=== PATIENT | female | born 1980 | race Caucasian/White ===

== ENCOUNTER 2016-10-13 20:48 | Inpatient (IN) | payer OTHER ==
[~2016-10-13] VITALS: Ht 180.3 cm; Wt 61.9 kg
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
--- NOTE | ~2016-10-13 | ENPV ---
Vascular Lower Extremities DVT Study Procedure Demographics Patient Name TYRON SANDERS Date of Study 10/18/2016 Patient Number [id number] Gender Female Date of 1980 Age 36 Visit Number [id number] Height Weight Number Room Number G6213 BSA BMI Referring Quan Castle MD Physician Quan Bradford MD Physician Physician Ordering Quan Bradford Supervisor Cell Maintenance Physician Organization Development Consultant Geno Franco, RT,RVT,RDCS Conclusions Summary Normal venous duplex examination of the legs bilaterally with normal venous Doppler signals noted throughout. No evidence of thrombophlebitis is noted bilaterally in the deep and superficial veins of the legs. Small calf thrombi cannot be excluded. Procedure Type of Study: Veins:Lower Extremities DVT Study, Venous Duplex Lower Extremity Bilateral. Appropriate Use Criteria:9 Patient Status:Routine. Study Location:Inpatient Portable. Technical Quality:Good visualization. - Preliminary reported to:LE Thakkar. Velocities are measured in cm/s ; Diameters are measured in cm Right Lower Extremities DVT Study Measurements Right 2D and Doppler Measurements + + + + +------+------+ + !Location !Visualized!Compressibility!Thrombosis!Signal!Reflux!Reflux ! ! ! ! ! ! ! !(sec) ! + + + + +------+------+ + !GSV Thigh !Yes !Yes !None !Phasic!No ! ! + + + + +------+------+ + !Common !Yes !Yes !None !Phasic!No ! ! !Femoral ! ! ! ! ! ! ! + + + + +------+------+ + !Prox !Yes !Yes !None !Phasic!No ! ! !Femoral ! ! ! ! ! ! ! + + + + +------+------+ + !Mid Femoral!Yes !Yes !None !Phasic!No ! ! + + + + +------+------+ + !Dist !Yes !Yes !None !Phasic!No ! ! !Femoral ! ! ! ! ! ! ! + + + + +------+------+ + !Popliteal !Yes !Yes !None !Phasic!No ! ! + + + + +------+------+ + !Gastroc !Yes !Yes !None !Phasic!No ! ! + + + + +------+------+ + !PTV !Yes !Yes !None !Phasic!No ! ! + + + + +------+------+ + !Peroneal !Yes !Yes !None !Phasic!No ! ! + + + + +------+------+ + Left Lower Extremities DVT Study Measurements Left 2D and Doppler Measurements + + + + +------+------+ + !Location !Visualized!Compressibility!Thrombosis!Signal!Reflux!Reflux ! ! ! ! ! ! ! !(sec) ! + + + + +------+------+ + !GSV Thigh !Yes !Yes !None !Phasic!No ! ! + + + + +------+------+ + !Common !Yes !Yes !None !Phasic!No ! ! !Femoral ! ! ! ! ! ! ! + + + + +------+------+ + !Prox !Yes !Yes !None !Phasic!No ! ! !Femoral ! ! ! ! ! ! ! + + + + +------+------+ + !Mid Femoral!Yes !Yes !None !Phasic!No ! ! + + + + +------+------+ + !Dist !Yes !Yes !None !Phasic!No ! ! !Femoral ! ! ! ! ! ! ! + + + + +------+------+ + !Popliteal !Yes !Yes !None !Phasic!No ! ! + + + + +------+------+ + !Gastroc !Yes !Yes !None !Phasic!No ! ! + + + + +------+------+ + !PTV !Yes !Yes !None !Phasic!No ! ! + + + + +------+------+ + !Peroneal !Yes !Yes !None !Phasic!No ! ! + + + + +------+------+ + Signature dtt: SERVANDO ORTIZ: 10/18/16 0743 Physician Nathanael Montejo
[2016-10-13 21:11] LABS: BASOPHIL % 0.3 %; EOSINOPHIL % 0.2 %; HEMOGLOBIN 10.4 g/dL (11.0-15.0); IMMATURE GRANULOCYTE # 0.1 K/uL (0.0-0.3); IMMATURE GRANULOCYTE % 0.4 %; LYMPHOCYTE # 1.1 K/uL (0.8-4.0); LYMPHOCYTE % 7.8 %; MCH 32.5 pg (27.0-34.0); MCHC 33.5 gm/dL (32.0-36.5); MCV 96.9 fl (83.0-98.0); MONOCYTE # 1.3 K/uL (0.0-1.0); MONOCYTE % 9.5 %; MPV 9.9 fl (9.4-12.4); NEUTROPHIL % 81.8 %; NRBC % 0 /100WBC (0-0.00); PLATELET COUNT 292 K/uL (150-450); RDW-CV 14.5 % (11.9-14.6); WBC 13.5 K/uL (4.0-11.0)
[2016-10-13 21:16] LABS: PCO2 37 mmHg (35-45); PO2 260 mmHg (80-90)
[2016-10-13 21:17] LABS: POTASSIUM 3.3 mEq/L (3.7-5.1); SODIUM 144 mEq/L (135-145)
[2016-10-13 21:20] LABS: INR - (THERAPEUTIC) 1.02 (0.92-1.07); PROTIME 10.7 SECONDS (9.8-11.4); PTT 23 SECONDS (25-32)
[2016-10-13 21:32] LABS: ANION GAP 12.3 (10.0-19.0); BLOOD UREA NITROGEN 5 mg/dL (6-24); CHLORIDE 117 mMol/L (96-110); CREATININE 0.8 mg/dL (0.5-1.1); ESTIMATED GFR (MDRD EQUATION) > 60
[2016-10-13 23:36] LABS: BASOPHIL % 0.2 %; EOSINOPHIL % 0.1 %; HEMATOCRIT 30.9 % (33.0-46.0); HEMOGLOBIN 10.1 g/dL (11.0-15.0); IMMATURE GRANULOCYTE # 0.1 K/uL (0.0-0.3); IMMATURE GRANULOCYTE % 0.4 %; LYMPHOCYTE # 1.5 K/uL (0.8-4.0); LYMPHOCYTE % 8.4 %; MCH 32.2 pg (27.0-34.0); MCHC 32.7 gm/dL (32.0-36.5); MCV 98.4 fl (83.0-98.0); MONOCYTE # 2.5 K/uL (0.0-1.0); MONOCYTE % 14.1 %; MPV 9.9 fl (9.4-12.4); NEUTROPHIL # (ANC) 13.3 K/uL (1.8-7.8); NEUTROPHIL % 76.8 %; NRBC % 0 /100WBC (0-0.00); PLATELET COUNT 343 K/uL (150-450); RBC 3.14 M/uL (3.50-5.50); RDW-CV 14.7 % (11.9-14.6)
[2016-10-13 23:39] LABS: WBC 17.3 K/uL (4.0-11.0)
[2016-10-13 23:54] LABS: ALK PHOS 46 IU/L (33-138); ALT 66 IU/L (12-78); ANION GAP 15.6 (10.0-19.0); AST 132 IU/L (10-40); BLOOD UREA NITROGEN 5 mg/dL (6-24); CALCIUM 7.6 mg/dL (8.5-10.5); CHLORIDE 115 mMol/L (96-110); CO2 18 mMol/L (22-32); ESTIMATED GFR (MDRD EQUATION) > 60; POTASSIUM 3.6 mMol/L (3.7-5.1); SODIUM 145 mMol/L (135-145); TOTAL BILIRUBIN 0.3 mg/dL (0.0-1.5); TOTAL PROTEIN 5.9 g/dL (6.0-8.4)
[2016-10-14 04:39] LABS: BICARBONATE 19.1 mmol/L (18.0-23.0); PCO2 33 mmHg (35-45); PO2 155 mmHg (80-90)
[2016-10-14 05:21] LABS: BASOPHIL % 0.1 %; HEMATOCRIT 25.7 % (33.0-46.0); HEMOGLOBIN 8.4 g/dL (11.0-15.0); IMMATURE GRANULOCYTE % 0.3 %; LYMPHOCYTE # 0.6 K/uL (0.8-4.0); LYMPHOCYTE % 5.6 %; MCH 31.9 pg (27.0-34.0); MCHC 32.7 gm/dL (32.0-36.5); MCV 97.7 fl (83.0-98.0); MONOCYTE # 1.7 K/uL (0.0-1.0); MONOCYTE % 16.6 %; MPV 9.8 fl (9.4-12.4); NEUTROPHIL # (ANC) 7.7 K/uL (1.8-7.8); NEUTROPHIL % 77.4 %; NRBC % 0 /100WBC (0-0.00); RBC 2.63 M/uL (3.50-5.50); RDW-CV 14.7 % (11.9-14.6)
[2016-10-14 05:23] LABS: PLATELET COUNT 220 K/uL (150-450)
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
[2016-10-14 05:43] LABS: ALBUMIN 2.6 gm/dL (3.5-5.0); ALK PHOS 39 IU/L (33-138); ALT 62 IU/L (12-78); AST 122 IU/L (10-40); CO2 21 mMol/L (22-32); CREATININE 0.8 mg/dL (0.5-1.1); ESTIMATED GFR (MDRD EQUATION) > 60; POTASSIUM 3.9 mMol/L (3.7-5.1); SODIUM 144 mMol/L (135-145); TOTAL BILIRUBIN 0.3 mg/dL (0.0-1.5); TOTAL PROTEIN 5.4 g/dL (6.0-8.4)
[2016-10-14 05:44] LABS: ANION GAP 9.9 (10.0-19.0); BLOOD UREA NITROGEN 8 mg/dL (6-24); CALCIUM 7.4 mg/dL (8.5-10.5); CHLORIDE 117 mMol/L (96-110)
--- NOTE | 2016-10-14 17:30 | NUR ---
PT VENTED ON 40% SATS 96-100%, BREATH SOUNDS SLIGHTLY COARSE THROUGHOUT, SXN A SMALL AMOUNT OF CREAMY SPUTUM, ETCO2 34-38 MOST OF THE DAY, WILL CONTINUE TO MONITOR UNTIL FURTHER NOTICE
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
--- NOTE | 2016-10-15 05:15 | NUR ---
FiO2 was weaned to 30% early in shift, with SpO2 high 90s most of the shift. She has become more aggitated at times early this AM with coughing and biting tube where she desats for a little bit and takes a while to recover. BrSs slightly coarse at times, suctioned scant amount of cream, thick secretions from ETT. On propofol and morphine, rests comfortably if not bothered. Still does not follow any directions though when sedation is turned down and her eyes are open. Continue per plan of care, monitor neuro, SBT?
--- NOTE | 2016-10-15 05:29 | NUR ---
Significant Event: PATIENT IS INTUBATED/SEDATED. SEE NEURO ASSESSMENT. HR'S 80'S-100'S. SBP 100'S-120'S. MAPS >65. TMAX 99.6. AC MODE RR12 TV 500 PEEP 5 30% FIO2. L) CT WITH 120ML OUT, BLOODY. ACTIVE BS. NO BM. NEPRO AT 10ML/HR, GOAL. JARRELL TO DD WITH ADEQ UOP, NO BLOOD IN URINE. MORPHINE IN HOME SALES CONSULTANT AT 1MG/HR. Follow up: CONTINUE TO MONITOR NEURO AND RESP STATUS.
[2016-10-15 05:31] LABS: PCO2 39 mmHg (35-45)
[2016-10-15 05:32] LABS: BICARBONATE 24.2 mmol/L (18.0-23.0); PO2 72 mmHg (80-90)
[2016-10-15 06:19] LABS: BASOPHIL # 0.1 K/uL (0.0-0.2); BASOPHIL % 0.3 %; EOSINOPHIL % 0.1 %; HEMATOCRIT 23.6 % (33.0-46.0); IMMATURE GRANULOCYTE # 0.1 K/uL (0.0-0.3); IMMATURE GRANULOCYTE % 0.7 %; LYMPHOCYTE # 1.2 K/uL (0.8-4.0); LYMPHOCYTE % 7.9 %; MONOCYTE # 2.2 K/uL (0.0-1.0); MPV 10.3 fl (9.4-12.4); NRBC % 0 /100WBC (0-0.00); PLATELET COUNT 234 K/uL (150-450); RBC 2.29 M/uL (3.50-5.50); RDW-CV 15.4 % (11.9-14.6); WBC 15.6 K/uL (4.0-11.0)
[2016-10-15 06:20] LABS: HEMOGLOBIN 7.3 g/dL (11.0-15.0); MCH 31.9 pg (27.0-34.0); MCHC 30.9 gm/dL (32.0-36.5); MCV 103.1 fl (83.0-98.0)
[2016-10-15 06:37] LABS: ALBUMIN 2.5 gm/dL (3.5-5.0); ALK PHOS 46 IU/L (33-138); ALT 58 IU/L (12-78); AST 88 IU/L (10-40); BLOOD UREA NITROGEN 10 mg/dL (6-24); CALCIUM 7.6 mg/dL (8.5-10.5); CO2 23 mMol/L (22-32); CREATININE 0.7 mg/dL (0.5-1.1); ESTIMATED GFR (MDRD EQUATION) > 60; POTASSIUM 4.1 mMol/L (3.7-5.1); TOTAL BILIRUBIN 0.3 mg/dL (0.0-1.5); TOTAL PROTEIN 5.6 g/dL (6.0-8.4)
[2016-10-15 06:44] LABS: ANION GAP 9.1 (10.0-19.0); CHLORIDE 119 mMol/L (96-110); SODIUM 147 mMol/L (135-145)
[2016-10-15 10:19] LABS: HEMATOCRIT 22.5 % (33.0-46.0)
[2016-10-15 10:21] LABS: HEMOGLOBIN 7.2 g/dL (11.0-15.0)
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
--- NOTE | 2016-10-15 11:40 | NUR ---
Introduced self and role of care management to pt's father. He lives in [place] and is retired and daughter has been living with him. He states she has been going thru a rough period. She does have a daughter but she lives with her father in [facility]. Pt has a mother who is a on trip with her husbadn over in [place] and will not be here till the end of the week. She has a sister in [place]. Michael did tell me his brother will be coming tomorrow and he is from [place]. I did ask about insurance and she does not and lost her job. He does not have POA or anything on her as well. I explained I will make the referral to our [employer] to assist with this. He plans on traveling back and forth from [place] and plans on being here everyday for the most part. I will notify [employer]. WIll continue to follow and assist.
--- NOTE | 2016-10-15 16:23 | NUR ---
SIGNIFICANT EVENT: PATIENT SEDATED WITH PROPOFOL AT 20 MCG/KG/MIN AND MORPHINE LANDSCAPE CREW MEMBER AT 1MG/HR. PATIENT OPENS EYES CONSISTENTLY TO VOICE. PUPILS EQUAL AND REACTIVE. DOES NOT NOD YES/NO TO QUESTIONS. FOLLOWS SIMPLE COMMANDS IN R) UPPER AND BILAT LOWER EXTREMTIIES. DOES NOT FOLLOW ANY COMMANDS IN L) UPPER EXTREMITY. WITHDRAWS TO PAIN IN L) UPPER EXTREMITY AND SLIGHT SPONT MOVEMENTS NOTED IN L) UPPER EXTREMITY. PATIENT REPOSITONED AT LEAST EVERY 2 HOURS. PATIENT HAS BEEN IN SINUS RHYTH, HR 80-110S. BP STABLE, SBP >90 ADN <150 AND MAP>65. H AND H EVERY 6 HOURS, 2 UNITS OF PRB ADMINSTERED, NO COMPLICATIONS. PULSES PALPABLE THROUGHUOT. MAX TEMP OF 99.7 TODAY, MD AWARE. CALL IF HGB LESS THAN 6.7. PATIENT HAS BEEN ON THE VENT, A/C MODE, R 20S, TV 500, PEEP 5. ETCO2 30-36. OVERBREATHS VENT SETTINGS. CHEST TUBE ON L) SIDE, INTACT, NO CREPITUS, NO COMPLICATIONS. BOWEL SOUNSD PRESENT, NO BM. JEVITY CURRENTLY INFUSING AT 20ML/HR, TO BE INCREASED TO A GOAL OF 60 ML/HR BY 10 EVERY 6 HOURS. NEXT INREASE A 6PM TONIGHT. JARRELL INTACT, ADEQUATE URINE OUTPUT. NO NEW SKIN ISSUES NOTED. 2 PIV, NO COMPLICATIONS. FOLLOW UP: CONTINUE TO MONITOR
--- NOTE | 2016-10-15 17:02 | NUR ---
PT VENTED ON 30% SATS 94-98%, BREATH SOUNDS SLIGHTLY COARSE THROUGHOUT BUT CLEAR SOME WITH SXN, SXN A SMALL TO MODERATE AMOUNT OF CREAMY SPUTUM, ETCO2 30-34 MOST OF THE DAY, PT WAS TAKEN TO CT TODAY, WILL CONTINUE TO MONITOR UNTIL FURTHER NOTICE
[2016-10-15 18:07] LABS: HEMOGLOBIN 9.3 g/dL (11.0-15.0)
[2016-10-15 18:08] LABS: HEMATOCRIT 28.3 % (33.0-46.0)
[2016-10-15 22:27] LABS: HEMATOCRIT 28.1 % (33.0-46.0); HEMOGLOBIN 9.5 g/dL (11.0-15.0)
[2016-10-16 03:49] LABS: BICARBONATE 26.5 mmol/L (18.0-23.0); PCO2 40 mmHg (35-45); PO2 67 mmHg (80-90)
[2016-10-16 05:33] LABS: HEMATOCRIT 26.3 % (33.0-46.0); HEMOGLOBIN 8.7 g/dL (11.0-15.0); MCH 32.1 pg (27.0-34.0); MCHC 33.1 gm/dL (32.0-36.5); MPV 10.6 fl (9.4-12.4); RBC 2.71 M/uL (3.50-5.50); WBC 10.2 K/uL (4.0-11.0)
--- NOTE | 2016-10-16 05:34 | NUR ---
Significant Event: PATIENT REMAINS INTUBATED/SEDATED. NO SIGNIFICANT NEURO CHANGES DURING SHIFT. HR'S 80-100'S. SBP 90'S-120'S. MAPS >65. TMAX 99.6. EDEMA PRESENT. AC MODE RR 12 TV 500 FIO2 30. O2 SAT >91%. OG WITH JEVITY AT 40ML/HR, GOAL IS 60ML. ACTIVE BS. NO BM. JARRELL TO DD WITH ADEQ UOP. NO NEW ORDERS. MORPHINE ENROLLER CONTINUES AT 1MG/HR. Follow up: CONTINUE ON CURRENT PLAN OF CARE.
[2016-10-16 05:40] LABS: PLATELET COUNT 183 K/uL (150-450); RDW-CV 18.3 % (11.9-14.6)
[2016-10-16 05:49] LABS: INR - (THERAPEUTIC) 0.92 (0.92-1.07); PROTIME 9.6 SECONDS (9.8-11.4); PTT 28 SECONDS (25-32)
--- NOTE | 2016-10-16 05:55 | NUR ---
No changes to vent settings t/o shift, continued on 30% Fio2, slightly coarse left>right, sxn small-moderate cream. Will continue to monitor
[2016-10-16 06:00] LABS: ABSOLUTE NEUTROPHIL CT (ANC) 8.6 K/uL (1.8-7.8); BANDED NEUTROPHIL # 1.6 K/uL (0.0-0.1); BANDED NEUTROPHILS % 16 %; LYMPHOCYTE # 1.1 K/uL (0.8-4.0); LYMPHOCYTE % 11 %; MONOCYTE # 0.4 K/uL (0.0-1.0); SEGMENTED NEUTROPHIL # 6.9 K/uL (1.8-7.8); SEGMENTED NEUTROPHIL % 68 %
[2016-10-16 06:07] LABS: ALBUMIN 2.2 gm/dL (3.5-5.0); ALK PHOS 59 IU/L (33-138); ALT 48 IU/L (12-78); AST 63 IU/L (10-40); BLOOD UREA NITROGEN 9 mg/dL (6-24); CALCIUM 8.4 mg/dL (8.5-10.5); CO2 24 mMol/L (22-32); CREATININE 0.6 mg/dL (0.5-1.1); ESTIMATED GFR (MDRD EQUATION) > 60; POTASSIUM 3.7 mMol/L (3.7-5.1); TOTAL PROTEIN 5.4 g/dL (6.0-8.4)
[2016-10-16 06:08] LABS: ANION GAP 9.7 (10.0-19.0); CHLORIDE 116 mMol/L (96-110); SODIUM 146 mMol/L (135-145); TOTAL BILIRUBIN 0.5 mg/dL (0.0-1.5)
[2016-10-16 10:08] LABS: HEMATOCRIT 25.8 % (33.0-46.0); HEMOGLOBIN 8.6 g/dL (11.0-15.0)
[2016-10-16 15:55] LABS: HEMATOCRIT 26.9 % (33.0-46.0)
--- NOTE | 2016-10-16 16:57 | NUR ---
Significant Event: Patient remains intubated and sedated. Propofol turned off twice today, currently at 10mcg/kg/hr. CPAP trial done with propofol off, patient did not tolerate well. Vent remains in A/C mode with FiO2 of 40. Ketamine and fentanyl drips started. Morphine SET UP MACHINIST discontinued. Patient does not follow commands or track. Withdraws to painful stimuli in all four extremities. Weakness noted in LUE. Opens eyes to voice and moves spontaneously. L) chest tube with 220 ml out. VSS. Afebrile. Jevity increased to 60 ml/hr which is goal rate. No residuals. Dr. Lincoln consulted for rib fractures. Follow up: Continue to wean propofol while managing pain. Continue to monitor respiratory and neuro status.
--- NOTE | 2016-10-16 17:22 | NUR ---
D: TRAUMA I: VENT, MDI R: PT WAS ON 30% FIO2 UP UNTIL WEANING TRIAL, ATTEMPTED WEANING TRIAL AROUND 15:00, RR INCREASED TO 35, SAT'S DROPPED TO MID 80'S, HR INCREASED TO 120'S TO 130'S, BLOOD PRESSURE INCREASED WELL, SWITCHED BACK OVER TO AC AFTER ABOUT 5 MINUTES, HAD TO INCREASE FIO2 TO 100% WELL, WEANED FIO2 BACK TO 30% BY 17:00, BS C&D IN UPPER LOBES & DIM IN BASES, SXNED OUT SCANT TO SMALL THICK CREAMY SECRETIONS, NO OTHER SIGNIFICANT CHANGES T/O DAY P: CONT.
[2016-10-16 22:26] LABS: HEMATOCRIT 26.9 % (33.0-46.0)
[2016-10-17 03:42] LABS: BICARBONATE 27.2 mmol/L (18.0-23.0); PCO2 42 mmHg (35-45); PO2 78 mmHg (80-90)
--- NOTE | 2016-10-17 03:59 | NUR ---
No changes to vent settings t/o shift, continue in A/C mode, 40% Fio2. Sxn moderate-large thick cream with spont cough from Pt. Lung sounds slightly coarse-slightly coarse. Poss CPAP trial this AM?
[2016-10-17 06:22] LABS: HEMATOCRIT 27.2 % (33.0-46.0); HEMOGLOBIN 9.1 g/dL (11.0-15.0); MCHC 33.5 gm/dL (32.0-36.5); MCV 95.8 fl (83.0-98.0); RBC 2.84 M/uL (3.50-5.50); RDW-CV 17.5 % (11.9-14.6); WBC 11.1 K/uL (4.0-11.0)
[2016-10-17 06:26] LABS: PLATELET COUNT 235 K/uL (150-450)
[2016-10-17 06:41] LABS: ALK PHOS 68 IU/L (33-138); ALT 37 IU/L (12-78); ANION GAP 7.9 (10.0-19.0); AST 38 IU/L (10-40); BLOOD UREA NITROGEN 7 mg/dL (6-24); CALCIUM 8.5 mg/dL (8.5-10.5); CHLORIDE 115 mMol/L (96-110); CO2 26 mMol/L (22-32); CREATININE 0.6 mg/dL (0.5-1.1); ESTIMATED GFR (MDRD EQUATION) > 60; POTASSIUM 3.9 mMol/L (3.7-5.1); SODIUM 145 mMol/L (135-145); TOTAL BILIRUBIN 0.5 mg/dL (0.0-1.5); TOTAL PROTEIN 5.6 g/dL (6.0-8.4)
[2016-10-17 06:51] LABS: ABSOLUTE NEUTROPHIL CT (ANC) 9.1 K/uL (1.8-7.8); BANDED NEUTROPHIL # 1.3 K/uL (0.0-0.1); BANDED NEUTROPHILS % 12 %; LYMPHOCYTE # 0.7 K/uL (0.8-4.0); LYMPHOCYTE % 6 %; MONOCYTE # 1.1 K/uL (0.0-1.0); SEGMENTED NEUTROPHIL # 7.8 K/uL (1.8-7.8); SEGMENTED NEUTROPHIL % 70 %
--- NOTE | 2016-10-17 11:55 | NUR ---
A - NUTRITION FOLLOW-UP. VENT, PROPOFOL AT 4.7ML/FQ=162 LIPIDS KCAL. NO BM YET. LABS: GLU 147, ALB 2.0 NEW MEDS: KETALAR. PT IS ON AGG SSI. DIET: TF W/ JEVITY 1.5 AT 60ML/HR, PROVIDING 2160 KCAL (2284KCAL W/ PROPOFOL), 92 GRAMS PROTEIN, 1094ML FREE WATER. TOLERATING WELL PER RN. EST NEEDS: 0781-2145 KCAL, 69-104 GRAMS PROTEIN, FLUID NEEDS: 1ML/KCAL D - INADEQUATE ORAL INTAKE RELATED TO INABILITY TO FEED ORALLY EVIDENCED BY VENT AND NEED FOR ENTERAL NUTRITION. I - CONTINUE W/ JEVITY 1.5 AT 60ML/HR. M/E - GOAL: PT WILL CONTINUE TO TOLERATE ENTERAL NUTRITION AND MEET >75% OF NEEDS IN 2-4 DAYS.
--- NOTE | 2016-10-17 16:37 | NUR ---
D: RESPIRATORY FAILURE I: V2OO, ALBUTEROL MDI R: BREATH SOUNDS COARSE TO SLIGHTLY COARSE, DECREASED LLL, SXN- MODERATE/LARGE THICK YELLOW, ET TUBE SECURE, CUFF AT MINIMAL OCCLUSIVE PRESSURE, IN CPAP 5/ PS 8- TOLERATES WELL P: CONTINUE TO WEAN OFF VENTILATOR
[2016-10-18 04:15] LABS: BICARBONATE 29.1 mmol/L (18.0-23.0); PCO2 48 mmHg (35-45); PO2 80 mmHg (80-90)
--- NOTE | 2016-10-18 04:38 | NUR ---
Significant Event: Patient remains intubated and drowsy. Restless and agitated at times--appears to be pain related. Morphine given IVP with no immediate relief noted. IVP Fentanyl pushed with some relief noted. Patient continued to thrash in bed--moving legs spontaneously and right arm spontaneously. Will reach for vent with right arm and try to extubate self. Left arm moves slightly at times. Versed IVP given as a one time order which helped calm patient down. Has been receiving IVP Fentanyl since then and is relieving restlessness and agitation. Does not follow commands. Did open eyes to voice a few times. Does not track. PERRLA. Unable to assess sensation or orientation. Opens eyes spontaneously more-so when in pain. SR-ST with PVCs. HTN at times with pain. Goal SBP < 150 and MAP > 65. 2+ pulses. 1+ edema to BLE and left arm. Max temp 100.7. Turned fan back on. Received order for PRN Tylenol if temp > 100.0. Chest tube to left had 210 mL out this shift--set up to suction. Dressing is C/D/I. Lungs slightly coarse and diminished. CPAP mode off and on this shift--mostly off during bedtime per orders. Tolerates CPAP mode better. TV 500, PEEP 5, FiO2 40%. Did have to titrate vent settings with restlessness. ETCO2 WNL. Jevity per OG running with no residuals at 60 mL/hr (goal). Bowel sounds hypoactive. Has not had a BM since admission. Villeda intact draining darker yellow urine with no complications. Current on menses. Bruising to left arm getting darker. Bruising to left arm/abrasion and right knee. Has psoriasis. IV to left AC infusing IVF with KCl at 120 mL/hr as well as Ketamine and Fentanyl. Changed settings at shift change to 10 and 50 respectively. D/C IV to right forearm d/t infiltrated. Propofol has been off since 1500 yesterday. Bilateral wrist restraints. Bilateral calf SCDs. Follow up: neuro checks every hour, possibly extubate
[2016-10-18 06:02] LABS: HEMATOCRIT 27.5 % (33.0-46.0); HEMOGLOBIN 9.3 g/dL (11.0-15.0); MCH 32.2 pg (27.0-34.0); MCHC 33.8 gm/dL (32.0-36.5); MCV 95.2 fl (83.0-98.0); MPV 10.1 fl (9.4-12.4); PLATELET COUNT 262 K/uL (150-450); RBC 2.89 M/uL (3.50-5.50); RDW-CV 16.2 % (11.9-14.6); WBC 11.1 K/uL (4.0-11.0)
[2016-10-18 06:14] LABS: ALK PHOS 72 IU/L (33-138); ALT 38 IU/L (12-78); AST 47 IU/L (10-40); BLOOD UREA NITROGEN 9 mg/dL (6-24); CALCIUM 8.7 mg/dL (8.5-10.5); CHLORIDE 113 mMol/L (96-110); CO2 26 mMol/L (22-32); CREATININE 0.5 mg/dL (0.5-1.1); ESTIMATED GFR (MDRD EQUATION) > 60; SODIUM 144 mMol/L (135-145); TOTAL BILIRUBIN 0.5 mg/dL (0.0-1.5); TOTAL PROTEIN 5.9 g/dL (6.0-8.4)
[2016-10-18 06:16] LABS: ALBUMIN 1.9 gm/dL (3.5-5.0)
[2016-10-18 06:42] LABS: ABSOLUTE NEUTROPHIL CT (ANC) 8.4 K/uL (1.8-7.8); BANDED NEUTROPHIL # 1.4 K/uL (0.0-0.1); BANDED NEUTROPHILS % 13 %; LYMPHOCYTE # 0.7 K/uL (0.8-4.0); LYMPHOCYTE % 6 %; SEGMENTED NEUTROPHIL % 63 %
--- NOTE | 2016-10-18 16:37 | NUR ---
Significant Event:PT WILL OPEN EYES TO SOUND. HAS FOLLOW COMMAND WITH RIGHT HAND AND LEG ON AND OFF ALL DAY. HAS BEEN ABLE TO SQUEEZE HAND AND WIGGLE FINGERS AND TOES. SPONTANOUS MOVMENT IN LOWER EXT. MORE ON THE RIGHT THEN LEFT. NO SPONTANOUS MOVMENT NOTED TO LEFT HAND. DOES WITH DRAW TO PAIN. PUPIL ARE 2.0 AND BRISK. PT SELF EXTUBATED SELF AT 1325 AND WAS REINTUBATED BY 1345. NEW OG PLACED AND TF CONTINUED. RESTRAINT HAVE BEEN ON ALL DAY BUT NOW HAS R) HAND MITTEN. JARRELL DRAINING YELLOW URINE. CT HAD 440 OUT. FENTANYL GTT INCREASED TO 100MCG/HR AND KETAMINE GTT STILL ON. GAVE IVP FENTANYL X 4 TODAY. LAST AT 1621 FOR RESTLESSNESS. RELIEF NOTED. TACHYCARDIC AT TIMES IN 130'S. ON ASSIST CONTROL. THICK [place] SPUTUM. Follow up:MONITOR
--- NOTE | 2016-10-18 17:24 | NUR ---
PT VENTED ON 40% SATS 94-98%, BREATH SOUNDS SLIGHTLY COARSE THROUGHOUT BUT CLEARS SOME WITH SXN, SXN A LARGE AMOUNT OF CREAMY [place] SPUTUM, ETCO2 34-40 MOST OF THE DAY, PT DID EXTUBATE HERSELF AROUND 1315, PT WAS BAGGED UNTIL ANESTHISIA WAS ABLE TO REINTUBATE, SATS WERE IN THE HIGH 90'S AND PT WAS INTUBATED WITH AN 8.0 ET TUBE, TUBE WAS SECURED WITH ETAD, WILL CONTINUE TO MONITOR UNTIL FURTHER NOTICE
[2016-10-19 04:45] LABS: BICARBONATE 31.5 mmol/L (18.0-23.0); PCO2 45 mmHg (35-45); PO2 132 mmHg (80-90)
[2016-10-19 05:10] LABS: HEMATOCRIT 28.6 % (33.0-46.0); HEMOGLOBIN 9.1 g/dL (11.0-15.0); MCH 30.1 pg (27.0-34.0); MCHC 31.8 gm/dL (32.0-36.5); MCV 94.7 fl (83.0-98.0); MPV 9.9 fl (9.4-12.4); RBC 3.02 M/uL (3.50-5.50); RDW-CV 15.5 % (11.9-14.6); WBC 11.9 K/uL (4.0-11.0)
[2016-10-19 05:11] LABS: PLATELET COUNT 336 K/uL (150-450)
--- NOTE | 2016-10-19 05:22 | NUR ---
No changes made to vent settings this shift. FiO2 currently at 40% for O2 sats of 91-96%. ETCO2 was 41-45 this shift. Breathsounds coarse to slightly throughout bilaterally, suctioning moderate to large amounts of thick yellow secretions. Will continue to monitor patient.
[2016-10-19 05:28] LABS: ALK PHOS 88 IU/L (33-138); ALT 54 IU/L (12-78); ANION GAP 8.2 (10.0-19.0); AST 58 IU/L (10-40); BLOOD UREA NITROGEN 7 mg/dL (6-24); CALCIUM 8.9 mg/dL (8.5-10.5); CHLORIDE 110 mMol/L (96-110); CO2 28 mMol/L (22-32); CREATININE 0.4 mg/dL (0.5-1.1); ESTIMATED GFR (MDRD EQUATION) > 60; POTASSIUM 4.2 mMol/L (3.7-5.1); SODIUM 142 mMol/L (135-145); TOTAL BILIRUBIN 0.6 mg/dL (0.0-1.5); TOTAL PROTEIN 5.9 g/dL (6.0-8.4)
[2016-10-19 05:29] LABS: ALBUMIN 1.8 gm/dL (3.5-5.0)
--- NOTE | 2016-10-19 05:35 | NUR ---
SIGNIFICANT EVENT: pupils 2 brisk. right sided spontaneous movement, RUE withdraws to painful stimuli, occasional spontaneous movement in LLE, no movement in LUE. Did not follow commands during shift. Fentanyl given prn for aggitation with bathing and position changes. Ketamine gtt running at 1ml/hr, fentanyl gtt running at 10ml/h. BP 100-140s. Chest tube output 120ml @ 20cc suction. jevity running at 60ml/h via OG tube. A/C 40%, tv 500, PEEP 5. Rectal suppository given during day shift, no BM. Generalized bruising.
[2016-10-19 06:19] LABS: BANDED NEUTROPHIL # 2.4 K/uL (0.0-0.1); BANDED NEUTROPHILS % 20 %; LYMPHOCYTE # 0.6 K/uL (0.8-4.0); LYMPHOCYTE % 5 %; MONOCYTE # 3.2 K/uL (0.0-1.0); SEGMENTED NEUTROPHIL # 5.6 K/uL (1.8-7.8); SEGMENTED NEUTROPHIL % 47 %
--- NOTE | 2016-10-19 10:52 | NUR ---
A-NUTRITION F/U ON VENT; KETAMINE AND FENTANYL. NOT FOLLOWING COMMANDS. HYPOACTIVE BS; NO BM, NO RESIDUALS. DULCOLAX SUPP. GIVEN YESTERDAY AND TODAY. PRN MOM ORDERED LABS: NA 142, K+ 4.2,GL U 131, BUN 7, SYSTEM ADMINISTRATION MANAGER 0.4, ALB 1.8 DIET RX: NPO; 60 ML/HR JEVITY 1.5 (PROVIDING 2160 KCALS, 92 GM PROTEIN, AND 1094 ML FREE WATER). EST NUTR NEEDS: 5042-0442 KCALS AND 69-104 GM PROTEIN D-AT NUTRITION RISK W/DIFF. SWALLOWING R/T VENT SUPPORT AEB NEED FOR ENTERAL FEEDING. I-RECOMMEND 150 ML WATER FLUSHES 6 TIMES DAILY M/E-GOAL: TF TO MEET PT'S NUTR. NEEDS 1)F/U TF, GI, AND POC IN 3-5 DAYS 2)ASSIST NEEDED
--- NOTE | 2016-10-19 17:19 | NUR ---
D: RESPIRATORY FAILURE I: V2OO, ALBUTEROL MDI R: BREATH SOUNDS COARSE TO SLIGHTLY COARSE THROUGHOUT, SXN- LARGE/COPIOUS THICK YELLOW, SPUTUM SAMPLE SENT TO LAB, ET TUBE SECURE, CUFF AT MINIMAL OCCLUSIVE PRESSURE, ETCO2 38-48 P: CONTINUE CURRENT THERAPY
--- NOTE | 2016-10-19 18:33 | NUR ---
Significant Event: Patient remains intubated. Ventilator mode changed to SIMV. Thick copious secretions, sputum culture sent to lab. Patient opens eyes to sound, but does not track. Inconsistently withdraws to pain in BLE and RUE. Spontaneous movement in RUE and BLE. Sinus tachycardia with rates in 110s-120s. Febrile with a temp of 100.8 at 1500. MD aware. Urine cultures and blood cultures ordered. Zosyn and tobramycin ordered. Follow up: Continue to manage pain and monitor neurological status
--- NOTE | 2016-10-20 03:56 | NUR ---
Significant Event: Opens eyes to painful stimuli, does not track appropriately. Pupils 3mm brisk. Gag and corneal reflex present. Spontaneous movement and inward flexion withdraws to painful stimuli in RUE and RLE. Localizes pain to LUE with facial grimace, no movement noted. LLE inward flexion withdraws to painful stimuli and grimace present. SBP 80-140's, HR 80-110's with PVC's, 1+ edema to bilateral lower extremities and L) hand. L.S. slightly coarse throughout on SIMV vent mode 40%FiO2, rate 12, TV 500, PEEP 5, white/yellow thick secretions present, respiratory cultures gathered yesterday. B.S. active, OG tube feeding osmolite at 60mL/hr no residuals, one moderate loose BM this shift. Villeda intact draining light dany urine, adequate UOP. Highest temp recorded 100.3, scheduled Tylenol and fan in room. Started Propofol to keep SAS score 1-2 at 2220, shut off at 0020 d/t SBP 81. Receiving Fentanyl and Ketamine CADD pump, NaCl with 20MeQ KCl at 50mL/hr L) posterior forearm. R) posterior forearm PIV SL'd. Follow up: Awaiting B.C.'s, urine culture, keep SAS 1-2. Neuro checks hourly
[2016-10-20 04:21] LABS: HEMATOCRIT 25.6 % (33.0-46.0); HEMOGLOBIN 8.5 g/dL (11.0-15.0); MCH 31.3 pg (27.0-34.0); MCHC 33.2 gm/dL (32.0-36.5); MCV 94.1 fl (83.0-98.0); MPV 10.2 fl (9.4-12.4); PLATELET COUNT 336 K/uL (150-450); RBC 2.72 M/uL (3.50-5.50); RDW-CV 15.2 % (11.9-14.6)
[2016-10-20 04:43] LABS: BICARBONATE 41.2 mmol/L (18.0-23.0); PCO2 62 mmHg (35-45); PO2 75 mmHg (80-90)
[2016-10-20 04:44] LABS: ALK PHOS 125 IU/L (33-138); ALT 73 IU/L (12-78); ANION GAP 7.8 (10.0-19.0); AST 71 IU/L (10-40); CALCIUM 8.8 mg/dL (8.5-10.5); CHLORIDE 104 mMol/L (96-110); CO2 33 mMol/L (22-32); CREATININE 0.5 mg/dL (0.5-1.1); ESTIMATED GFR (MDRD EQUATION) > 60; POTASSIUM 3.8 mMol/L (3.7-5.1); SODIUM 141 mMol/L (135-145); TOTAL BILIRUBIN 0.5 mg/dL (0.0-1.5); TOTAL PROTEIN 5.8 g/dL (6.0-8.4)
[2016-10-20 04:45] LABS: ALBUMIN 1.8 gm/dL (3.5-5.0); BLOOD UREA NITROGEN 11 mg/dL (6-24)
[2016-10-20 04:47] LABS: ABSOLUTE NEUTROPHIL CT (ANC) 9.2 K/uL (1.8-7.8); BANDED NEUTROPHIL # 3.2 K/uL (0.0-0.1); BANDED NEUTROPHILS % 23 %; LYMPHOCYTE # 2.5 K/uL (0.8-4.0); LYMPHOCYTE % 18 %; SEGMENTED NEUTROPHIL % 43 %
--- NOTE | 2016-10-20 05:02 | NUR ---
No vent changes madet this shift, has continued in SIMV, FiO2 40%. Most of the night until this AM she has been overbreathing the set rate of 12 on SIMV and pulling larger volumes then the set 500ml. She still pulls in hard when taking an inhalation. EtCO2 has been 41-44, this AM they have increased to 48-50 with ABG results of a PaCO2 of 62. BrSs slightly coarse t/o, suctioned moderate-large amounts of cream, thick secretions from ETT. Call with lab results, vent changes?
[2016-10-20 09:14] LABS: BICARBONATE 41.4 mmol/L (18.0-23.0); PCO2 61 mmHg (35-45); PO2 68 mmHg (80-90)
--- NOTE | 2016-10-20 17:28 | NUR ---
D: RESPITATORY FAILURE I: V2OO, ALBUTEROL MDI R: BREATH SOUNDS COARSE TO SLIGHTLY COARSE, DECREASED LOWER LOBES, SXN-MODERATE THICK YELLOW, ET TUBE SECURE, CUFF AT MINIMAL OCCLUSIVE PRESSURE, ETCO2 41-46, INCREASED RR TO 15 AND BACK TO CMV MODE P: CONTINUE CURRENT THERAPY
--- NOTE | 2016-10-20 18:33 | NUR ---
Significant Event: Follow up: PATIENT WAS NOT FOLLOWING VERBAL COMMANDS OR RESPONDING TO PAIN. PAIN MEDICATION WAS TITRATED DOWN THROUGHOUT THE DAY, PATIENT BEGAN TO FOLLOW. SHE OPENED BILATERAL EYES TO COMMAND AND COULD SQUEEZE WITH THE RIGHT HAD (STRONG CERTIFIED TECHNICIAN SPECIALIST). LATER WAS MOVING RIGHT LEG AND BENDING KNEE (NOT TO COMMAND). CLOSER TO SHIFT CHANGE PATIENT WAS MOVING LEFT LEG AND BENDING KNEE (NOT TO COMMAND). PATIENT BECAME MORE ALERT AND RESPONSIVE ENOUGH TO REACH FOR ET TUBE. SOFT RESTRAINT ON RIGHT WRIST CURRENTLY. PRESSURE HAVE CONTINUED TO BE 80/90 SYSTOLIC AND NSR WITH PVCS PERIODICALLY. VENT RATE BUMPED UP FROM 12 TO 15. NO RESIDUAL ISSUES. SMALL SOFT BROWN BOWEL MOVEMENT THIS AM. RIGHT FOREARM PIV REMOVED (SLIGHT INFILTRATION). NEW PIV PUT IN LEFT WRIST. JARRELL CHANGED OUT (GRAM - RODS IN URINE). FENTANYAL TITRATED DOWNWARD ALL DAY TO INCREASE ALERTNESS IN NEURO STATUS (POSITIVE RESPONSE). REPEAT CT SCHEDULE FOR 10/21.
[2016-10-20 20:30] LABS: PCO2 55 mmHg (35-45); PO2 71 mmHg (80-90)
[2016-10-21 04:06] LABS: BICARBONATE 39.3 mmol/L (18.0-23.0); PCO2 54 mmHg (35-45); PO2 75 mmHg (80-90)
--- NOTE | 2016-10-21 05:00 | NUR ---
No vent changes made this shift, continues in CMV, RR 15. EtCO2 this shift 38-43. Suctioned moderate amounts of thick, yellow secretions from ETT. Pt starting to follow some commands. Trip to CT this AM without any complications. Continue per plan of care, SBT?
--- NOTE | 2016-10-21 05:17 | NUR ---
Significant Event: Patient restless/agitated at beginning of shift despite prn fentanyl. Propofol started and fentanyl drip increased to current rate of 50mcg/hr. Opens eyes spontaneously and to voice. Follows commands in RUE and RLE. Spontaneous in LLE. Pupils equal and reactive. ST/SR, BP stable. A/C, suctioning thick yellow/cream secretions. OG in place with tube feeding running, no residuals. No bm. Villeda intact, adequate UOP. No new or worsening skin issues. PIVx2 intact. CT scan of head done this shift Follow up: Continue. F/U with CT results.
[2016-10-21 06:45] LABS: BASOPHIL # 0.1 K/uL (0.0-0.2); BASOPHIL % 0.5 %; EOSINOPHIL # 0.4 K/uL (0.0-0.5); EOSINOPHIL % 2.5 %; HEMATOCRIT 27.9 % (33.0-46.0); HEMOGLOBIN 9.3 g/dL (11.0-15.0); IMMATURE GRANULOCYTE # 0.4 K/uL (0.0-0.3); IMMATURE GRANULOCYTE % 2.4 %; LYMPHOCYTE # 1.1 K/uL (0.8-4.0); LYMPHOCYTE % 7.6 %; MCH 31.5 pg (27.0-34.0); MCHC 33.3 gm/dL (32.0-36.5); MCV 94.6 fl (83.0-98.0); MONOCYTE # 2.4 K/uL (0.0-1.0); MONOCYTE % 16.1 %; NEUTROPHIL # (ANC) 10.5 K/uL (1.8-7.8); NEUTROPHIL % 70.9 %; NRBC % 0 /100WBC (0-0.00); RBC 2.95 M/uL (3.50-5.50); RDW-CV 15.2 % (11.9-14.6); WBC 14.8 K/uL (4.0-11.0)
[2016-10-21 06:47] LABS: PLATELET COUNT 463 K/uL (150-450)
[2016-10-21 07:01] LABS: ALK PHOS 146 IU/L (33-138); ALT 120 IU/L (12-78); ANION GAP 7.7 (10.0-19.0); AST 122 IU/L (10-40); BLOOD UREA NITROGEN 13 mg/dL (6-24); CALCIUM 9.6 mg/dL (8.5-10.5); CHLORIDE 100 mMol/L (96-110); CO2 35 mMol/L (22-32); CREATININE 0.6 mg/dL (0.5-1.1); ESTIMATED GFR (MDRD EQUATION) > 60; POTASSIUM 3.7 mMol/L (3.7-5.1); SODIUM 139 mMol/L (135-145); TOTAL BILIRUBIN 0.6 mg/dL (0.0-1.5); TOTAL PROTEIN 6.4 g/dL (6.0-8.4)
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
--- NOTE | 2016-10-21 17:48 | NUR ---
Significant Event: Patient currently sedated on ketamine, propofol, and fentanyl gtt. This barely keeps her comfortable. Physicians all aware of her situation and have given orders on specific rates/dosages. Patient does not tolerate what so ever of being weaned off of current sedation. Started on lovenox this shift. Tolerating Tube feeding well. Followed commands consistently this shift mostly to right sided extremeties. 99.3 is high temp. Became very diaphoretic with weaning of sedation. Follow up:
[2016-10-22 03:41] LABS: BICARBONATE 36.7 mmol/L (18.0-23.0); PCO2 46 mmHg (35-45); PO2 64 mmHg (80-90)
--- NOTE | 2016-10-22 03:41 | NUR ---
No vent changes made this shift. EtCO2 36-44 this shift. Suctioning moderate amounts of thick yellow secretions from ETT. Sedation and pain management for ventilator synchrony and work of breathing. Continue per plan of care.
--- NOTE | 2016-10-22 05:41 | NUR ---
Significant Event: Patient restless/agitated at shift change, increased sedation for SAS of 3. Propofol at 35mcg/kg/min, Fentanyl at 50mcg/kg/min, and Ketamine at 15mcg/kg/min. On light sedation patient followed commands on the Right side, and LLE. LUE is flaccid. Spontaneously moves BLE. Purposeful with RUE. Pupils are equal and reactive. ST with PVCs, HRs 120s-130s, BP stable. 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 Active bowel sounds, TF running at 60ml/hr,goal, no residuals, no bm. Villeda intact with adequate UOP. Bath given. Patient in droplet isolation. Follow up: continue
[2016-10-22 07:21] LABS: HEMATOCRIT 29.8 % (33.0-46.0); HEMOGLOBIN 9.9 g/dL (11.0-15.0); MCH 31.1 pg (27.0-34.0); MCHC 33.2 gm/dL (32.0-36.5); MCV 93.7 fl (83.0-98.0); MPV 9.9 fl (9.4-12.4); RBC 3.18 M/uL (3.50-5.50); RDW-CV 15.6 % (11.9-14.6)
[2016-10-22 07:22] LABS: PLATELET COUNT 690 K/uL (150-450); WBC 21.7 K/uL (4.0-11.0)
[2016-10-22 07:37] LABS: ALBUMIN 2.2 gm/dL (3.5-5.0); ALK PHOS 177 IU/L (33-138); ALT 110 IU/L (12-78); ANION GAP 9.1 (10.0-19.0); AST 67 IU/L (10-40); BLOOD UREA NITROGEN 14 mg/dL (6-24); CALCIUM 9.7 mg/dL (8.5-10.5); CHLORIDE 105 mMol/L (96-110); CO2 31 mMol/L (22-32); CREATININE 0.6 mg/dL (0.5-1.1); ESTIMATED GFR (MDRD EQUATION) > 60; POTASSIUM 4.1 mMol/L (3.7-5.1); SODIUM 141 mMol/L (135-145); TOTAL PROTEIN 7.3 g/dL (6.0-8.4)
[2016-10-22 07:38] LABS: TOTAL BILIRUBIN 0.3 mg/dL (0.0-1.5)
[2016-10-22 07:54] LABS: ABSOLUTE NEUTROPHIL CT (ANC) 16.9 K/uL (1.8-7.8); BANDED NEUTROPHIL # 4.8 K/uL (0.0-0.1); BANDED NEUTROPHILS % 22 %; LYMPHOCYTE # 2.4 K/uL (0.8-4.0); LYMPHOCYTE % 11 %; MONOCYTE # 2.2 K/uL (0.0-1.0); SEGMENTED NEUTROPHIL # 12.2 K/uL (1.8-7.8); SEGMENTED NEUTROPHIL % 56 %
--- NOTE | 2016-10-22 11:04 | NUR ---
A-NUTRITION F/U ON THE VENT; SEDATED WITH KETAMINE, FENTANYL, AND 15 ML/HR PROPOFOL PROPOFOL PROVIDING (360 LIPID CALORIES). NEISSERIA MENIGITIS IN SPUTUM (+)BM ON 10/20. NO RESIDUALS FROM TF LABS: NA 141, K+ 4.1, GLU 165, BUN 14, INDUSTRIAL HEALTH ENGINEER 0.6, ALB 2.2 MEDS: K2PO4, ROCEPHIN, DIET RX: NPO; JEVITY 1.5 @ 60 ML/HR. THIS IS PROVIDING 2160 KCALS, 92 MG PROTEIN, 1094 ML FREE WATER. EST NUTR NEEDS: 7118-3583 KCALS AND 69-104 GM PROTEIN D-AT NUTRITION RISK W/INADEQUATE ORAL INTAKE R/T DIFF. SWALLOWING AEB VENT SUPPORT, RELIANCE ON ENTERAL FEEDINGS. I-CONTINUE W/CURRENT TF RX M/E-GOAL: TF TO MEET NUTR. NEEDS 1)F/U TF AND POC IN 3-5 DAYS 2)ASSIST NEEDED
--- NOTE | 2016-10-22 15:40 | NUR ---
PT ON FENT AT 50MCG/HR AND KETAMINE AT 15 AND PROPOFOL AT 30MCG/KG/MIN WITH RUE PURPOSEFUL AND RESTRAINED AND BLE SPONT WITH R>L. LUE WITHDRAWS WITH SLIGHT EDEMA. HR 110-140'S, SBP 130-160'S, T-MAX 100.0, CONT WITH CURRENT ABX FOR NOW AND POSSIBLY CHANGE TOMORROW. WILL DRAW 1600 CBC REPEAT TODAY. A/C, PEEP INCREASED TO 8 WITH LS SLC AT TIMES WITH STRONG SPONT COUGH/GAG PRESENT AND COPIOUS AMT OF THICK CREAMY SECRETIONS. UOP WNL, PT +54 FOR SHIFT, WITH DULCOLAX HELD D/T LG BM THIS AM. TOLERATING TF WELL PER OGT. TOTAL FLUIDS TO CONT AT 100MLS/HR. TENTATIVE PLAN TO POSSIBLY PLACE LINE TOMORROW, CONT WITH L) CT WITH SEROSANG O/P OF 20 MLS THIS SHIFT, AND POSSIBLY EXTUBATE SATURDAY AND IF NOT FAIRED WELL THEN TRACHEOTOMY ON SATURDAY.
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
[2016-10-22 18:30] LABS: HEMATOCRIT 30.2 % (33.0-46.0); MCH 31.2 pg (27.0-34.0); MCHC 33.1 gm/dL (32.0-36.5); MCV 94.1 fl (83.0-98.0); MPV 10.2 fl (9.4-12.4); PLATELET COUNT 819 K/uL (150-450); RBC 3.21 M/uL (3.50-5.50); RDW-CV 15.7 % (11.9-14.6); WBC 25.7 K/uL (4.0-11.0)
[2016-10-22 18:51] LABS: ABSOLUTE NEUTROPHIL CT (ANC) 21.6 K/uL (1.8-7.8); BANDED NEUTROPHIL # 3.3 K/uL (0.0-0.1); BANDED NEUTROPHILS % 13 %; LYMPHOCYTE # 1.3 K/uL (0.8-4.0); LYMPHOCYTE % 5 %; MONOCYTE # 1.8 K/uL (0.0-1.0); SEGMENTED NEUTROPHIL # 18.3 K/uL (1.8-7.8); SEGMENTED NEUTROPHIL % 71 %
--- NOTE | 2016-10-23 02:50 | NUR ---
No changes to vent settings t/o shift, continued on 40% Fio2. Lung sounds coarse left>right. Sxn moderate thin cream/white with spont cough from Pt. Will continue as ordered
[2016-10-23 05:41] LABS: BASOPHIL # 0.2 K/uL (0.0-0.2); BASOPHIL % 0.8 %; EOSINOPHIL # 0.2 K/uL (0.0-0.5); HEMATOCRIT 30.2 % (33.0-46.0); IMMATURE GRANULOCYTE % 4.3 %; LYMPHOCYTE # 1.5 K/uL (0.8-4.0); LYMPHOCYTE % 6.3 %; MCH 31.4 pg (27.0-34.0); MCHC 33.1 gm/dL (32.0-36.5); MONOCYTE # 2.4 K/uL (0.0-1.0); MONOCYTE % 10.1 %; MPV 10.2 fl (9.4-12.4); NEUTROPHIL # (ANC) 18.3 K/uL (1.8-7.8); NEUTROPHIL % 77.5 %; NRBC % 0.1 /100WBC (0-0.00); PLATELET COUNT 731 K/uL (150-450); RBC 3.18 M/uL (3.50-5.50)
[2016-10-23 05:44] LABS: WBC 23.7 K/uL (4.0-11.0)
--- NOTE | 2016-10-23 05:51 | NUR ---
Significant Event: Patient sedated on 30mcg/kg/min of propofol, 50mcg fentanyl, 15mcg ketamine. Patient seemed to be resting, SAS of 3. Patient spontaneously moves BLE, purposeful on RUE, and flaccid LUE, withdraws. Pupils 3mm, brisk and reactive. Patient has remained ST this shift with PVCs, HRs 120s-130s. BP has been stable. 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 Active bowel sounds, TF @60ml/hr, goal, no residuals, 2 large,loose BM. Villeda intact with adequate UOP. Patient bathed. Droplet Isolation. Follow up:
[2016-10-23 05:59] LABS: ALBUMIN 2.2 gm/dL (3.5-5.0); ALK PHOS 183 IU/L (33-138); ALT 108 IU/L (12-78); ANION GAP 10.1 (10.0-19.0); AST 65 IU/L (10-40); BLOOD UREA NITROGEN 20 mg/dL (6-24); CALCIUM 9.9 mg/dL (8.5-10.5); CHLORIDE 110 mMol/L (96-110); CO2 28 mMol/L (22-32); CREATININE 0.7 mg/dL (0.5-1.1); ESTIMATED GFR (MDRD EQUATION) > 60; POTASSIUM 4.1 mMol/L (3.7-5.1); SODIUM 144 mMol/L (135-145); TOTAL PROTEIN 7.4 g/dL (6.0-8.4)
[2016-10-23 06:01] LABS: TOTAL BILIRUBIN 0.4 mg/dL (0.0-1.5)
--- NOTE | 2016-10-23 16:17 | NUR ---
Significant Event:Follows commands to right side of body, opens eye to sound, withdraws to pain in all 4 extremitites. HR in 100's at rest and 140's with activity. SBP 110's to 140's. FI O2 remains at 40% FiO2. Copious amounts of creamy suputm. BAL sent to lab today. Lungs coarse until suctioned. TF at goal of 60 ml/h, no residuals. 2 XL and 1 Large BM's with a dramatic amount of liquid stool with large solid BM, brown. Sent C-Diff sample to lab. Supossitory changed to PRN. Daily dose held this AM. Abrasions and bruises on skin are healing, psoriasis noted. Sedation continues at same rate as last shift. CT with contrast of chest abdomen and pelvis completed today to look for source of infection. Max temp 101.2, PRN tylenol given at that time. Diphoretic most of the day. IVF fluids infusing at a total of 100 ml/h. Father called and updated x 2, plans to be here early in AM. magdaleno and CT patent. Follow up:Decrease sedation, stop TF and prepare to extubate @ 0600 to go on Bipap. Possible trach and PEG to follow. NO orders for permits.
--- NOTE | 2016-10-24 04:01 | NUR ---
No changes to vent settings t/o shift, continue on 40% Fio2, in A/C mode. Sxn large thin/thick cream with strong cough from Pt. Lung sounds clear/diminished right, more slightly coarse left base>upper. Will continue to monitor, poss extubation today?
--- NOTE | 2016-10-24 04:35 | NUR ---
Significant Event: Patient sedated on propofol. Continues to move RUE and RLE spontaneously and purposefully. Tachycardic, BP stable, afebrile. A/C on vent, no CT output. Tube feeding stopped at 0400. Follow up: Extubation trials
[2016-10-24 05:46] LABS: HEMATOCRIT 30.2 % (33.0-46.0); HEMOGLOBIN 9.6 g/dL (11.0-15.0); MCH 30.6 pg (27.0-34.0); MCHC 31.8 gm/dL (32.0-36.5); MCV 96.2 fl (83.0-98.0); PLATELET COUNT 800 K/uL (150-450); RBC 3.14 M/uL (3.50-5.50); RDW-CV 16.5 % (11.9-14.6)
[2016-10-24 05:47] LABS: WBC 23.4 K/uL (4.0-11.0)
[2016-10-24 05:58] LABS: ALBUMIN 2.2 gm/dL (3.5-5.0); BLOOD UREA NITROGEN 25 mg/dL (6-24); CALCIUM 9.3 mg/dL (8.5-10.5); CHLORIDE 112 mMol/L (96-110); CO2 28 mMol/L (22-32); CREATININE 0.7 mg/dL (0.5-1.1); ESTIMATED GFR (MDRD EQUATION) > 60; PHOSPHORUS 3.3 mg/dL (2.5-4.9)
[2016-10-24 06:03] LABS: ANION GAP 11.6 (10.0-19.0); MAGNESIUM 2.2 mg/dL (1.8-2.6); SODIUM 147 mMol/L (135-145)
[2016-10-24 06:04] LABS: POTASSIUM 4.6 mMol/L (3.7-5.1)
[2016-10-24 06:29] LABS: ABSOLUTE NEUTROPHIL CT (ANC) 19.4 K/uL (1.8-7.8); BANDED NEUTROPHIL # 2.6 K/uL (0.0-0.1); BANDED NEUTROPHILS % 11 %; LYMPHOCYTE # 1.6 K/uL (0.8-4.0); LYMPHOCYTE % 7 %; MONOCYTE # 2.3 K/uL (0.0-1.0); SEGMENTED NEUTROPHIL # 16.9 K/uL (1.8-7.8); SEGMENTED NEUTROPHIL % 72 %
--- NOTE | 2016-10-24 12:39 | NUR ---
Significant Event: PT MOVES R)SIDED EXTREMITIES SPONTANEOUSLY AND TO COMMAND AT TIMES. L)EXTREMITIES REMAIN VERY WEAK/FLACCID; DOES WITHDRAW TO PAIN. PERRLA. PT EXTUBATED PER 'S ORDERS AT 0925. CPAP INITIATED AND PT HAS BEEN TOLERATING WELL. R)WRIST RESTRAINT D/C'D AT 0925. PROPOFOL AND KETAMINE DRIP D/C'D THIS AM. UNABLE TO ASSESS ORIENTATION. TACHYCARDIA WITH RATES IN THE LOW 100'S-120'S. TO KEEP SBP <150. LUNG SOUNDS SLIGHTLY COARSE THROUGHOUT. ABLE TO COUGH AT TIMES; THICK SPUTUM NOTED WITH ORAL SUCTIONING. 2 XL LOOSE BM'S THIS SHIFT. OG TUBE CLAMPED. JARRELL PATENT, DRAINING YELLOW URINE. L)CHEST TUBE INTACT; CHANGED TO WATER SEAL. PIV'S X2. IV FLUIDS INFUSING WITHOUT COMPLICATIONS. SCHEDULED IV PAIN MEDICATIONS (TORADOL AND ACETAMINOPHEN) ORDERED TODAY, WHICH SEEMS TO BE KEEPING PT COMFORTABLE. Follow up: MONITOR PT'S RESPIRATORY STATUS, Q6H ACCUCHECKS
--- NOTE | 2016-10-24 16:23 | NUR ---
Late entry for Thursday 10/19. I called Gretel again with Je to make sure she has talked with dad regarding medicaid and getting guardianship. I did place guardianship letter on the chart for md to sign and dad was not coming till late afternoon evening.
[2016-10-25 05:53] LABS: ALBUMIN 2.1 gm/dL (3.5-5.0); ALK PHOS 186 IU/L (33-138); ALT 107 IU/L (12-78); AST 74 IU/L (10-40); BLOOD UREA NITROGEN 31 mg/dL (6-24); CALCIUM 9.2 mg/dL (8.5-10.5); CO2 23 mMol/L (22-32); CREATININE 0.5 mg/dL (0.5-1.1); ESTIMATED GFR (MDRD EQUATION) > 60; POTASSIUM 3.7 mMol/L (3.7-5.1); TOTAL BILIRUBIN 0.4 mg/dL (0.0-1.5); TOTAL PROTEIN 6.6 g/dL (6.0-8.4)
[2016-10-25 05:55] LABS: ANION GAP 10.7 (10.0-19.0); CHLORIDE 119 mMol/L (96-110); SODIUM 149 mMol/L (135-145)
[2016-10-25 05:56] LABS: HEMATOCRIT 27.2 % (33.0-46.0); HEMOGLOBIN 8.6 g/dL (11.0-15.0); MCH 30.6 pg (27.0-34.0); MCHC 31.6 gm/dL (32.0-36.5); MCV 96.8 fl (83.0-98.0); MPV 10.2 fl (9.4-12.4); PLATELET COUNT 776 K/uL (150-450); RBC 2.81 M/uL (3.50-5.50); RDW-CV 16.6 % (11.9-14.6); WBC 18.1 K/uL (4.0-11.0)
[2016-10-25 06:20] LABS: ABSOLUTE NEUTROPHIL CT (ANC) 15.6 K/uL (1.8-7.8); BANDED NEUTROPHILS % 11 %; LYMPHOCYTE # 0.9 K/uL (0.8-4.0); LYMPHOCYTE % 5 %; MONOCYTE # 1.6 K/uL (0.0-1.0); SEGMENTED NEUTROPHIL # 13.6 K/uL (1.8-7.8); SEGMENTED NEUTROPHIL % 75 %
--- NOTE | 2016-10-25 10:39 | NUR ---
A - NUTRITION FOLLOW-UP EXTUBATED 10/24. WT ON 10/22 153#, 10/23 149#, 10/25 149# LABS: NA 149, GLU 109, BUN 31, ALB 2.1, ELEVATED LFTs NEW MEDS: PEPCID. DIET: ST EVALUATED TODAY, ADVANCED TO PUREE/NECTAR THICK DIET. EST NEEDS: [id number] KCAL, 69-104 GRAMS PROTEIN, FLUID NEEDS: 1ML/KCAL D - INADEQUATE ORAL INTAKE RELATED TO INABILITY TO FEED ORALLY SECONDARY TO RECENT INTUBATION/SEDATION EVIDENCED BY RECENT EN AND MODIFIED DIET. I - WILL TRIAL NECTAR THICK CIB 2X/DAY. M/E - GOAL: PT WILL BE ABLE TO TOLERATE >50% OF MEALS AND AT LEAST ONE ORAL SUPPLEMENT PER DAY IN 4-6 DAYS.
--- NOTE | 2016-10-25 13:11 | NUR ---
I did speak keny Romero and updated her. Dr Saul consulted and left a vm with Ligia. I am waiting to talk with dad when he arrives. I left a vm with Gretel as well wondering about the Medicaid application as well. WIll continue to follow.
--- NOTE | 2016-10-25 15:03 | NUR ---
Social visit with pt's father today. He states he is doing better and she is looking much better. He states his ex should be getting state side this weekend from [facility] and they can work on POA or Guardianship. I did discuss the need for acute intenisve rehab and something that would specialize in TBI/stroke would be much better. I gave options for [facility] and that would only be 2-3hrs away for him and also ex or also [place] or [facility] as well. I stated most places will not accept till Medicaid pending or [facility] and they have contracts with [facility] and [employer]. Occupational therapist Sally also there during conversation as well. I did tell him we have an acute rehab here as well if needed and appropriate. I did give him the guardianship letter and explained I would call Gretel again with [employer] to get the medicaid application started. Gretel again stated they need it before she proceeds but I did tell her she is off the ventilator and is following intermittent commands so she can see if she can discuss with dad and pt and go from there. I did call [facility] and they accept Medicaid and have [facility] and [employer] contracts for acute rehab and ltac. WIll continue to follow.
--- NOTE | 2016-10-25 15:23 | NUR ---
Significant Event: PT alert, opens eyes, moves spontaneously x3, slight movement in L)arm. Follows some commands. Nods head, says yes/no. VSS, on room air. PIV x2 patent. Villeda patent. L)chest tube removed this shift. Patient up to chair with therapy, very heavy 2 assist, back to bed with lift by RN's. PT started on pureed diet with nectar thick liquids, tolerating well, is a 1:1 feeder. Follow up:
[2016-10-26 05:49] LABS: HEMATOCRIT 30.2 % (33.0-46.0); HEMOGLOBIN 9.6 g/dL (11.0-15.0); MCH 31.3 pg (27.0-34.0); MCHC 31.8 gm/dL (32.0-36.5); MCV 98.4 fl (83.0-98.0); PLATELET COUNT 824 K/uL (150-450); RBC 3.07 M/uL (3.50-5.50); RDW-CV 17.1 % (11.9-14.6)
[2016-10-26 06:08] LABS: ALBUMIN 2.4 gm/dL (3.5-5.0); ALK PHOS 228 IU/L (33-138); ALT 122 IU/L (12-78); AST 68 IU/L (10-40); BLOOD UREA NITROGEN 29 mg/dL (6-24); CALCIUM 9.1 mg/dL (8.5-10.5); CO2 20 mMol/L (22-32); CREATININE 0.6 mg/dL (0.5-1.1); ESTIMATED GFR (MDRD EQUATION) > 60; POTASSIUM 3.5 mMol/L (3.7-5.1)
[2016-10-26 06:10] LABS: ANION GAP 13.5 (10.0-19.0); CHLORIDE 118 mMol/L (96-110); SODIUM 148 mMol/L (135-145); TOTAL BILIRUBIN 0.5 mg/dL (0.0-1.5)
[2016-10-26 06:31] LABS: ABSOLUTE NEUTROPHIL CT (ANC) 12.2 K/uL (1.8-7.8); BANDED NEUTROPHIL # 0.5 K/uL (0.0-0.1); BANDED NEUTROPHILS % 3 %; LYMPHOCYTE # 1.8 K/uL (0.8-4.0); LYMPHOCYTE % 11 %; MONOCYTE # 1.1 K/uL (0.0-1.0); SEGMENTED NEUTROPHIL # 11.7 K/uL (1.8-7.8); SEGMENTED NEUTROPHIL % 73 %
--- NOTE | 2016-10-26 13:38 | NUR ---
Significant Event: Alert to self, able to mumble first name. Dysphasia present. Opens eyes to voice, follows commands appropriately at times. L) pupil 7mm brisk, R) pupil 6mm brisk. Unsure of location, month/year. LUE withdraws to painful stimuli, no spontaneous movement present, sling to L) clavicle. RUE able to hand grasp moderate strength with spontaneous movement. Wiggles toes to bilateral lower extremities, weakness present to LLE more so than RLE. Systolic 110-120's, HR 60-80's, absent edema, 2+ pulses. L.S. clear throughout on RA. B.S. active, last BM 10/25. D/C'd magdaleno catheter this AM awaiting for next void. PIV L) forearm infusing NaCl with 20Meq KCl, PIV L) hand SL'd. Regular diet, thin liquids, takes medications whole. [place] given for pain relief to L) ribs, last given at 1100. Ambulates 2PA gait belt pivot. Hi-Lo bed. Neuro trauma status. Neuro checks Q2Hrs. Follow up: MRI performed this afternoon, awaiting results and possible plan to transfer
--- NOTE | 2016-10-27 04:57 | NUR ---
Significant Event: Follow up:PATIENT CONFUSED AND CONTINUESLY TRIES TO CRAWL OUT OF BED, ON A HIGH/LOW BED, PAIN MEDS GIVEN NORCO X2 FENTANYL X1, INCONT OF BOWL AND BLADDER CURRENTLY IN BRIEF, BRIEF CHANGED X3, ME X4
[2016-10-27 05:15] LABS: BASOPHIL # 0.1 K/uL (0.0-0.2); BASOPHIL % 0.7 %; EOSINOPHIL # 0.3 K/uL (0.0-0.5); EOSINOPHIL % 1.7 %; HEMATOCRIT 30.3 % (33.0-46.0); HEMOGLOBIN 9.9 g/dL (11.0-15.0); IMMATURE GRANULOCYTE # 0.7 K/uL (0.0-0.3); IMMATURE GRANULOCYTE % 4.2 %; LYMPHOCYTE # 1.3 K/uL (0.8-4.0); LYMPHOCYTE % 8.1 %; MCH 31.6 pg (27.0-34.0); MCHC 32.7 gm/dL (32.0-36.5); MCV 96.8 fl (83.0-98.0); MONOCYTE # 1.5 K/uL (0.0-1.0); MONOCYTE % 9.6 %; MPV 9.7 fl (9.4-12.4); NEUTROPHIL # (ANC) 12.2 K/uL (1.8-7.8); NEUTROPHIL % 75.7 %; NRBC % 0 /100WBC (0-0.00); PLATELET COUNT 942 K/uL (150-450); RBC 3.13 M/uL (3.50-5.50); RDW-CV 17.2 % (11.9-14.6)
[2016-10-27 05:17] LABS: WBC 16.1 K/uL (4.0-11.0)
[2016-10-27 05:34] LABS: ALBUMIN 2.5 gm/dL (3.5-5.0); ANION GAP 10.2 (10.0-19.0); BLOOD UREA NITROGEN 15 mg/dL (6-24); CHLORIDE 114 mMol/L (96-110); CO2 22 mMol/L (22-32); CREATININE 0.5 mg/dL (0.5-1.1); ESTIMATED GFR (MDRD EQUATION) > 60; PHOSPHORUS 2.8 mg/dL (2.5-4.9); POTASSIUM 3.2 mMol/L (3.7-5.1); SODIUM 143 mMol/L (135-145)
--- NOTE | 2016-10-27 19:07 | NUR ---
Significant Event: PATIENT ALERT ET CONFUSED, ORIENTED TO FIRST NAME ET MONTH OF ONLY. DOES NOT REORIENT. SPEECH QUIET ET GARBELED AT TIMES. FOLLOWS COMMANDS TO BLE ET RUE. SLING TO LUE IND: CLAVICLE FX. INCONTINENT OF BOWEL AND BLADDER. LS CLEAR ON RA, BS X4. AFEBRILE, VSS. NORCO GIVEN X1. Follow up: TRANSFER TO NTU
--- NOTE | 2016-10-28 04:56 | NUR ---
Significant Event: Patient alert to person only. Restless. Speech is incoherent. Moves all extremities spontaneously. Follows some commands. L) clavicle fx, L) rib fx. Sling to be worn when up. Previous CT site to left side, dressing intact, reinforced this shift. Full lift. Lungs clear on room air, spontaneous non-productive cough. BS active. Incontinent of bowel and bladder. PIV to L) AC and R) hand. NS with 20 KCL running at 50 ml/hr. Scheduled tylenol given. Miracle x 1 tab last given at 0010. Follow up: Continue to monitor.
[2016-10-28 06:25] LABS: BASOPHIL # 0.1 K/uL (0.0-0.2); BASOPHIL % 0.7 %; EOSINOPHIL # 0.4 K/uL (0.0-0.5); EOSINOPHIL % 2.2 %; HEMATOCRIT 30.5 % (33.0-46.0); HEMOGLOBIN 9.9 g/dL (11.0-15.0); IMMATURE GRANULOCYTE # 0.4 K/uL (0.0-0.3); IMMATURE GRANULOCYTE % 2.5 %; LYMPHOCYTE # 1.2 K/uL (0.8-4.0); LYMPHOCYTE % 7.8 %; MCH 30.8 pg (27.0-34.0); MCHC 32.5 gm/dL (32.0-36.5); MONOCYTE # 1.3 K/uL (0.0-1.0); MONOCYTE % 8.4 %; MPV 9.4 fl (9.4-12.4); NEUTROPHIL # (ANC) 12.5 K/uL (1.8-7.8); NEUTROPHIL % 78.4 %; NRBC % 0 /100WBC (0-0.00); PLATELET COUNT 983 K/uL (150-450); RBC 3.21 M/uL (3.50-5.50); RDW-CV 17.8 % (11.9-14.6); WBC 15.9 K/uL (4.0-11.0)
[2016-10-28 06:35] LABS: ALBUMIN 2.6 gm/dL (3.5-5.0); ANION GAP 13.8 (10.0-19.0); BLOOD UREA NITROGEN 11 mg/dL (6-24); CALCIUM 8.9 mg/dL (8.5-10.5); CHLORIDE 113 mMol/L (96-110); CO2 19 mMol/L (22-32); CREATININE 0.5 mg/dL (0.5-1.1); ESTIMATED GFR (MDRD EQUATION) > 60; MAGNESIUM 2.1 mg/dL (1.8-2.6); PHOSPHORUS 3.1 mg/dL (2.5-4.9); POTASSIUM 3.8 mMol/L (3.7-5.1); SODIUM 142 mMol/L (135-145)
--- NOTE | 2016-10-28 13:50 | NUR ---
Significant Event: VSS. PATIENT ALERT, DID TELL ME HER NAME A FEW TIMES OTHERWISE IS DISORIENTED X 3. FOLLOWS SOME COMMANDS INCONSISTENTLY. UNABLE TO ASSESS FOR N/T. PUPILS 6MM, BRISK. LUNGS CLEAR AND DIM ON ROOM AIR. BOWELS ACTIVE. C/O PAIN TO LEFT ARM, BACK. CURRENTLY ON SCHEDULED TYLENOL, NORCO ALSO GIVEN SO FAR X 1 THIS SHIFT. IV IN LEFT A/C SALINE LOCKED AND RT HAND SALINE LOCKED. UP WITH 2 ASSIST OR FULL LIFT. SLING TO LEFT ARM ON. INCONTINENT OF BOWEL AND BLADDER LARGE AMOUNTS. NEEDS ASSIST WITH MEALS. TAKES PILLS FAIRLY OK WITH WATER. WAS NOT ABLE TO SWALLOW PO KCL SO LIQUID WAS GIVEN. CONTINUES ON NEURO CHECKS Q 2HRS AND VITALS Q 4HRS. HI/LO BED, ALARMS. Follow up: ALARMS. NEURO STATUS. PAIN CONTROL. ASSIST WITH MEALS.
--- NOTE | 2016-10-29 03:49 | NUR ---
Significant Event: Patient alert to self and at times. Very restless. Perrl. Incoherent speech. Moves all extremities spontaneously. Follows some commands. VSS. Afebrile. Room air. BS active. No bm this shift. Incontinent of bowel and bladder. Takes meds whole. Scheduled tylenol given and Gans last given x 1 tab at 0100. PIV to right hand SL, intermittent ABX. Follow up: Continue to monitor.
--- NOTE | 2016-10-29 10:14 | NUR ---
I spoke again with Aaliyah with therapy and pt is ready for rehab. She stated she did some research and mom is in [facility] and [facility] in [facility] is 2 hr [address], [facility] in [place] 1 hr 30 min and [facility] is 2hr 12 min and for dad most are 3-4 hrs away. I did call [facility] and spoke with Dana [phone] and they only accept open medicaid not pending. I then called [facility] and spoke with Sally and they accept leanne care at times it just depends. Her number is [phone] and fax is [phone] so just fax her information.
--- NOTE | 2016-10-29 11:20 | NUR ---
A - NUTRITION F/U. ALERT TO NAME ONLY. NO NEW LABS. 1+ EDEMA T/O. CBW: 147# DOWN 4# SINCE ADMISSION. BMI REMAINS WNL. DIET ADVANCED TO REGULAR, INTAKE 25-75%. PT NEEDS ASSIST W/ MEALS. D - AT RISK W/ INADEQUATE ORAL INTAKE R/T DECREASED APPETITE AEB INTAKE RECORD AND WT LOSS. I - GOAL: 50% OR BETTER INTAKE BY NEXT REVIEW. M/E - WILL OFFER ENSURE TID W/ MEALS TO INCREASE ENERGY ALLOWANCE OF F/U ON INTAKE IN 2-4 DAYS.
--- NOTE | 2016-10-29 15:49 | NUR ---
Significant Event: Patient is alert and oriented to nikole name only, did know last name on 2nd assessment & otherwise disoriented. Speech is disorganized at times. Follows most simple commands. Equal strength in all extremities & has moderate strength, except for L) arm due to pain from clavical fracture. Pupils equal & brisk. VSS but HR is tachy at times. Patient does frequently say "ouch" and grimacing with any movement. She gets scheduled Tylenol and I gave her 1 [place] @ 0824 & 50 mcg of Fentanyl @ 1154 with relief noted. Did not seem to sedate her. IV to R) hand SL. Up with 2 assist and gait belt. High/low bed and can be impulsive at times. Does become restless and more so when she is incontinent. Did void in the toilet x1 today. No issues with swallowing and will feed herself with some help. Cooperative with cares. Follow up: Monitor neuro, alarms on.
--- NOTE | 2016-10-30 05:37 | NUR ---
Significant Event: PT is A&O to self. Speech is disorganized at times, but follows most commands and moves all extremities. L) arm is in sling due to clavical fx. PEERL. VS stable. Pulses are present and palbable. Edema absent. Lung sounds are clear bilaterally with simmetrical chest movement. PT became increasingly restless throughout the night and c/o pain in her back and ribs. Fentanyl 50mcg was given for immediately relief and supplemented with 2 tabs [place] at 0049 with relief noted on reassessment. IV to R) hand SL. Up with two assist and gait belt. BS are active. Only one incontinent episode was noted. Follow up: Continue to monitor neuro, neurovascular, and vital signs. Alarms on. Clarify order for scheduled OG Tylenol.
[2016-10-30 05:39] LABS: BASOPHIL # 0.1 K/uL (0.0-0.2); BASOPHIL % 0.5 %; EOSINOPHIL # 0.4 K/uL (0.0-0.5); HEMATOCRIT 32.7 % (33.0-46.0); HEMOGLOBIN 10.8 g/dL (11.0-15.0); IMMATURE GRANULOCYTE # 0.2 K/uL (0.0-0.3); IMMATURE GRANULOCYTE % 1.1 %; LYMPHOCYTE # 0.8 K/uL (0.8-4.0); LYMPHOCYTE % 5.6 %; MCH 31.8 pg (27.0-34.0); MCV 96.2 fl (83.0-98.0); MONOCYTE # 1.1 K/uL (0.0-1.0); MONOCYTE % 7.9 %; MPV 9.3 fl (9.4-12.4); NEUTROPHIL # (ANC) 11.6 K/uL (1.8-7.8); NEUTROPHIL % 81.9 %; NRBC % 0 /100WBC (0-0.00); PLATELET COUNT 1000 K/uL (150-450); RDW-CV 17.8 % (11.9-14.6); WBC 14.2 K/uL (4.0-11.0)
[2016-10-30 05:57] LABS: ALBUMIN 2.8 gm/dL (3.5-5.0); ANION GAP 12.1 (10.0-19.0); BLOOD UREA NITROGEN 15 mg/dL (6-24); CALCIUM 9.3 mg/dL (8.5-10.5); CHLORIDE 109 mMol/L (96-110); CO2 20 mMol/L (22-32); CREATININE 0.6 mg/dL (0.5-1.1); ESTIMATED GFR (MDRD EQUATION) > 60; PHOSPHORUS 3.5 mg/dL (2.5-4.9); SODIUM 137 mMol/L (135-145)
[2016-10-30 06:00] LABS: POTASSIUM 4.1 mMol/L (3.7-5.1)
--- NOTE | 2016-10-30 09:45 | NUR ---
Received call this a.m. from Maria E with [facility]. She says they do not have a leanne bed at this time and will not have one for at least a month. Left [facility] for Ligia on [facility] regarding referral to [facility]. Will follow.
--- NOTE | 2016-10-30 18:45 | NUR ---
Significant Event: Patient is alert and oriented to self only. Does answer some questions appropriatly but is still very confused. Follows most simple commands. Equal strength in all extremities except for her L) arm due to pain and clavical fracture. Patient can be slow to repond at times and needs a lot of cueing. Can be impulsive and more so when she needs to go to the bathroom or is incontinent. Pupils equal & brisk. Unable to assess numbness & tingling. VSS but HR can be tachy at times. States she hurts and will say "ouch" often. Last gave her 1 [place] & 1 Tylenol @ 1708, with relief noted. IV to R) hand SL. Up with 2 assist and gait belt. Last BM 10/27. Drinks well but does not eat much. Cooperative with cares. Follow up: Monitor neuro and pain, alarms on.
--- NOTE | 2016-10-31 05:33 | NUR ---
Significant Event: PT is A&O to self. Speech is disorganized at times, but follows most commands and moves all extremities. L) arm is in sling due to clavical fx. PEERL. VS stable. Pulses are present and palpable. Edema absent. Lung sounds are clear bilaterally with symmetrical chest movement. PT became increasingly restless throughout the night and c/o pain in her back and ribs. Fentanyl 25mcg was given for immediately relief and supplemented with 1 tab [place] at 2140 with relief noted on reassessment. PT C/O pain at 0300 rounding; 1 tab [place] was given with relief noted on reassessment. IV to R) hand SL. Up with two assist and gait belt. BS are active. Follow up: Continue to monitor neuro, neurovascular, and vital signs. Alarms on.
--- NOTE | 2016-10-31 13:30 | NUR ---
Talked to Ligia on [facility] this a.m. and they can accept patient on Thursday 11/02 at 0900. Talked to patient, her dad, her mom and an aunt and updated them. They are happy she will be able to go to inpt rehab here. Mom and Dad met with Gretel with Je earlier regarding medicaid application. Left note for physicians regarding rehab bed on Saturday. Will follow.
--- NOTE | 2016-10-31 15:04 | NUR ---
Significant Event: VSS. PATIENT ALERT, DOES SAY NAME MOST OF THE TIME. DID SAY SHE WAS IN [place] AT 2ND ASSESSMENT. PUPILS 5MM, BRISK. FOLLOWS COMMANDS. MODERATE STRENGTH. LUNGS CLEAR ON ROOM AIR. NSR. NORCO GIVEN FOR PAIN THIS SHIFT, RELIEF NOTED. UP WITH 1 ASSIST AND GAITBELT. LEFT ARM SLING ON WHEN UP. NEEDS ASSIST SETTING UP MEALS, BUT DOES WELL FEEDING HERSELF. POOR APPETITE TODAY. HAS NOT HAD BM FOR 4 DAYS. PATIENT AND HER DAD STATES SHE USUALLY GOES ONCE EVERY 4-5 DAYS. PATIENT REFUSED MILK OF MAG THIS AM, BUT NOW DR ORDERED IT TO BE GIVEN. WILL TRY AGAIN. IV IN RT HAND SALINE LOCKED. HI/LO BED, ALARMS ON FOR SAFETY. PLAN FOR [facility] ON SATURDAY AT 9AM. Follow up: NEURO STATUS. BM. [facility] FRI
--- NOTE | 2016-11-01 05:17 | NUR ---
Significant Event: The patient is Alert and Oriented x1. Denies Numbness and Tingling. Moves all extremities spontaneously and to command. Left upper arm slightly weaker due to clavical fx. Sling to the left arm for comfort. Up with SBA and gaitbelt, hands on due to being unsteady on her feet. VSS. On room air. Gave [place] with her 2100 meds. PIV to the Right hand saline locked. Incontinent/ Continent of urine. High Low bed- impulsive at times. Follow up: [facility] Saturday
--- NOTE | 2016-11-01 11:00 | NUR ---
Talked to Ligia on [facility] and plan is for patient to transfer to them tomorrow 11/02 at 0900. Will follow.
--- NOTE | 2016-11-01 12:44 | NUR ---
A-NUTRITION F/U 11/01 WT (STANDING SCALE): 61.9 KG. WT ON 10/31 (BED SCALE): 66.9 KG ALERT AND ORIENTED X1. PLAN IS FOR [facility] TOMORROW LABS: NA 137, K+ 4.1, GLU 91, BUN 15, MANOMETER TECHNICIAN 0.6, ALB 2.8 MEDS: MOM DIET RX: REGULAR W/ENSURE ENLIVE TID. PO INTAKE REFUSALS & BITES-75%. EST NUTR NEEDS: 0166-2650 KCALS AND 69-104 GM PROTEIN D-AT NUTRITION RISK W/INADEQUATE ORAL INTAKE R/T ALTERED APPETITE AEB INTAKE RECORDS, WT LOSS. I-CONTINUE W/ENSURE ENLIVE TID; ENCOURAGE PT TO TAKE M/E-GOAL: PO INTAKE >/=50% BY DISCHARGE 1)F/U PO INTAKE, SUPPLEMENT, WT, AND POC IN 4-5 DAYS 2)ASSIST NEEDED
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
--- NOTE | 2016-11-01 23:46 | NUR ---
Significant Event: Alert to self. Up SBA. L) arm weaker than R) due to clavical fracture. Sling to L) arm. Pupils brisk. VSS. RA lungs clear. Voids per bathroom inc at times. Last BM 11/01. Old chest to site to L) side. IV to R) SL. In highlow bed. Impulsive when needs to go to the bathroom or when in pain. Follow up: GIRP in AM
--- NOTE | 2016-11-02 03:46 | NUR ---
Pt here from [facility] at 2100. Pt had bm on [facility] after suppository. Pt refuses sling per [facility] staff and pt. Pt is alert to only self. Pt given norco at 2245. Pt impulsive. Pupils 4mm brisk. VSS. Pt incontinent. To go to [facility] at 0900. Left arm 4/5 right arm 5/5. Lower extremeties 5/5. CSM intact.
--- NOTE | 2016-11-02 09:21 | NUR ---
Transfer Note: Dangles at edge of bed. Impulsive, high/low bed, alarm on second setting. Dressing to L) lower chest C/D/I. Refuses sling to L) arm. IV to R) wrist saline locked. Incont urine this morning. Oriented to self only. Pleasant and cooperative with cares.
== END 2016-11-02 11:00 | DRG 963 ==
LOC: GACC 20:48 → G3N 22:15 → GICU 22:15 → GNTU 22:15 → GICU 10-26 09:50 → GNTU 10-29 02:17 → GICU 10-29 14:15 → G3N 11-01 21:17
PROVIDERS: Anesthesiology; Emergency Medicine; Neurological Surgery; Physical Medicine & Rehabilitation; Physician Assistant; Surgery; ADMIT Surgery
PROC: 5A1955Z Respiratory Ventilation, Greater than 96 Consecutive Hours (ICD-10-PCS; principal; 2016-10-13)
PROC: 0W9B30Z Drainage of Left Pleural Cavity with Drainage Device, Percutaneous Approach (ICD-10-PCS; 2016-10-13)
PROC: 30233N1 Transfusion of Nonautologous Red Blood Cells into Peripheral Vein, Percutaneous Approach (ICD-10-PCS; 2016-10-15)
PROC: 0BH17EZ Insertion of Endotracheal Airway into Trachea, Via Natural or Artificial Opening (ICD-10-PCS; 2016-10-18)
DX: S06.6X9A Traumatic subarachnoid hemorrhage with loss of consciousness of unspecified duration, initial encounter (principal); S27.2XXA Traumatic hemopneumothorax, initial encounter; J15.211 Pneumonia due to Methicillin susceptible Staphylococcus aureus; I77.74 Dissection of vertebral artery; J96.01 Acute respiratory failure with hypoxia; I77.71 Dissection of carotid artery; S32.049A Unspecified fracture of fourth lumbar vertebra, initial encounter for closed fracture; T79.7XXA Traumatic subcutaneous emphysema, initial encounter; E87.2 Acidosis; J16.8 Pneumonia due to other specified infectious organisms; S22.42XA Multiple fractures of ribs, left side, initial encounter for closed fracture; S27.322A Contusion of lung, bilateral, initial encounter; D62 Acute posthemorrhagic anemia; S37.032A Laceration of left kidney, unspecified degree, initial encounter; T83.511A Infection and inflammatory reaction due to indwelling urethral catheter, initial encounter; S36.039A Unspecified laceration of spleen, initial encounter; V48.5XXA Car driver injured in noncollision transport accident in traffic accident, initial encounter; S40.022A Contusion of left upper arm, initial encounter; S20.219A Contusion of unspecified front wall of thorax, initial encounter; S42.022A Displaced fracture of shaft of left clavicle, initial encounter for closed fracture; Y95 Nosocomial condition; R73.9 Hyperglycemia, unspecified; M40.40 Postural lordosis, site unspecified; M47.892 Other spondylosis, cervical region; D72.829 Elevated white blood cell count, unspecified; D47.3 Essential (hemorrhagic) thrombocythemia; Z23 Encounter for immunization; Z78.1 Physical restraint status; F10.129 Alcohol abuse with intoxication, unspecified; F19.10 Other psychoactive substance abuse, uncomplicated; E87.70 Fluid overload, unspecified
CPT/HCPCS: C9113; G0009; G0390; G0480; J0131; J0690; J0696; J1650; J1885; J1940; J2250; J2270; J2370; J2543; J2704; J3010; J3260; J3480; J7030; J7040; J7042; J7050; P9016; P9047; Q9967

== ENCOUNTER 2016-11-02 11:36 | Inpatient (IN) | payer OTHER ==
[~2016-11-02] VITALS: Ht 180.3 cm; Wt 62.5 kg
--- NOTE | ~2016-11-02 | DS ---
PATIENT'S NAME: TYRON SANDERS [facility] AGE: 36 Y [address] ROOM: [id number] [place] [address] LOCATION: [facility] ADMIT DATE: 11/02/2016 Discharge Summary DISCHARGE DATE: FAMILY PHYSICIAN: PHYSICIAN, NO ATTENDING PHYSICIAN: Mahendra Hills This 36-year-old lady was admitted to rehab unit at [facility] on 11/02/2016, will be discharged on 11/20/2016 to go to home in [place]. She will have outpatient PT/OT and Speech, script given three times per week for the coming 4 weeks and renewal per her family physician. She is at the present time doing well, alert, oriented. Vitals are as follows: Blood pressure 109/70, temperature 98.3, pulse 88, respirations 16. She is at the present time with CMS as following: Sodium 142, potassium 4.5, chloride 111, CO2 25, BUN 11, creatinine 0.7, and glucose 92. Her prealbumin is 27. She can ambulate in excess of 600 feet without any assistance at [facility] and she finds her way fairly well nicely. She is on the following medications: 1. Aspirin 81 mg p.o. daily. 2. Pepcid 20 mg p.o. daily. 3. NicoDerm starting tomorrow on 11/20, she will have 14 mg topical for 2 weeks and thereafter 7 mg topical for 2 weeks and then discontinue. 4. Tylenol Extra Strength 650 q.8 hours alternate with Advil 200 mg q.8 hours each one for 30 days. FINAL DIAGNOSIS: 1. Unstable gait, dependent activity of daily and self care, and confusion now doing better. Reflux gastric disease. 2. Respiratory failure, stable at the present time. 3. Bilateral frontal subarachnoid hemorrhage and a small intraventricular hemorrhage, stable. 4. Multiple left rib fractures, stable now. 5. Left clavicle fracture, stable. 6. Right L4 transverse process fracture, stable. 7. Left renal laceration, stable. She is to continue on outpatient PT, OT, and Speech 3 times per week for the coming 4 weeks and renewal per her family physician. She should avoid any drinking. At the present time, she should not drive and/or operate any mechanical or electrical device. No followup with me. She should follow with PATIENT'S NAME: TYRON SANDERS [facility] AGE: 36 Y [address] ROOM: [facility] [place] [address] LOCATION: [facility] ADMIT DATE: 11/02/2016 Discharge Summary DISCHARGE DATE: FAMILY PHYSICIAN: PHYSICIAN, NO ATTENDING PHYSICIAN: Mahendra Hills her family physician as soon as possible. Follow up with Dr. Bowser and Dr. Sullivan as each sees fit. All the above was explained to her in detail. She verbalized understanding and agreement. MAHENDRA HILLS MD WMS/modl /[id number] d: 11/19/16 1201 t: 11/21/16 0711, DISCHARGE SUMMARY
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
[2016-11-03 01:07] LABS: BILIRUBIN URINE NEGATIVE (NEGATIVE); BLOOD URINE 10 /UL (NEGATIVE); COLOR URINE YELLOW (YELLOW); GLUCOSE URINE NEGATIVE (NEGATIVE); KETONE URINE NEGATIVE (NEGATIVE); LEUKOCYTES URINE NEGATIVE /UL (NEGATIVE); NITRITE URINE NEGATIVE (NEGATIVE); PH URINE 6.5 (4.0-8.0); PROTEIN URINE NEGATIVE (NEGATIVE); SPEC GRAVITY URINE 1.005 (1.003-1.035); TURBIDITY URINE CLEAR (CLEAR); UROBILINOGEN URINE NORMAL (NORMAL)
[2016-11-03 01:14] LABS: BACTERIA URINE NEGATIVE (NEGATIVE); RBC URINE 0-2 #/HPF (NEGATIVE); WBC URINE RARE #/HPF (NEGATIVE)
[2016-11-03 05:43] LABS: BASOPHIL % 0.7 %; EOSINOPHIL # 0.1 K/uL (0.0-0.5); EOSINOPHIL % 2.2 %; HEMATOCRIT 34.4 % (33.0-46.0); HEMOGLOBIN 10.9 g/dL (11.0-15.0); IMMATURE GRANULOCYTE % 0.5 %; LYMPHOCYTE # 1.6 K/uL (0.8-4.0); MCH 30.4 pg (27.0-34.0); MCHC 31.7 gm/dL (32.0-36.5); MCV 95.8 fl (83.0-98.0); MONOCYTE # 0.8 K/uL (0.0-1.0); MONOCYTE % 13.7 %; MPV 8.9 fl (9.4-12.4); NEUTROPHIL # (ANC) 3.4 K/uL (1.8-7.8); NEUTROPHIL % 56.9 %; NRBC % 0 /100WBC (0-0.00); RBC 3.59 M/uL (3.50-5.50); RDW-CV 16.7 % (11.9-14.6)
[2016-11-03 05:46] LABS: PLATELET COUNT 791 K/uL (150-450)
[2016-11-03 06:02] LABS: ALBUMIN 2.9 gm/dL (3.5-5.0); ALK PHOS 291 IU/L (33-138); ALT 31 IU/L (12-78); ANION GAP 9.2 (10.0-19.0); AST 23 IU/L (10-40); BLOOD UREA NITROGEN 15 mg/dL (6-24); CALCIUM 9.6 mg/dL (8.5-10.5); CHLORIDE 109 mMol/L (96-110); CO2 26 mMol/L (22-32); CREATININE 0.6 mg/dL (0.5-1.1); POTASSIUM 4.2 mMol/L (3.7-5.1); SODIUM 140 mMol/L (135-145); TOTAL BILIRUBIN 0.4 mg/dL (0.0-1.5)
[2016-11-12 06:14] LABS: ALBUMIN 2.9 gm/dL (3.5-5.0); ALK PHOS 187 IU/L (33-138); ALT 27 IU/L (12-78); ANION GAP 10.1 (10.0-19.0); AST 21 IU/L (10-40); BLOOD UREA NITROGEN 14 mg/dL (6-24); CALCIUM 9.9 mg/dL (8.5-10.5); CHLORIDE 112 mMol/L (96-110); CO2 25 mMol/L (22-32); CREATININE 0.7 mg/dL (0.5-1.1); POTASSIUM 4.1 mMol/L (3.7-5.1); SODIUM 143 mMol/L (135-145); TOTAL PROTEIN 6.7 g/dL (6.0-8.4)
[2016-11-12 06:16] LABS: TOTAL BILIRUBIN 0.2 mg/dL (0.0-1.5)
[2016-11-19 05:58] LABS: ALBUMIN 3.1 gm/dL (3.5-5.0); ALK PHOS 163 IU/L (33-138); ALT 21 IU/L (12-78); BLOOD UREA NITROGEN 11 mg/dL (6-24); CALCIUM 9.9 mg/dL (8.5-10.5); CHLORIDE 111 mMol/L (96-110); CO2 25 mMol/L (22-32); CREATININE 0.7 mg/dL (0.5-1.1); SODIUM 142 mMol/L (135-145); TOTAL PROTEIN 6.9 g/dL (6.0-8.4)
[2016-11-19 06:00] LABS: ANION GAP 10.5 (10.0-19.0); AST 32 IU/L (10-40); POTASSIUM 4.5 mMol/L (3.7-5.1); TOTAL BILIRUBIN 0.3 mg/dL (0.0-1.5)
[2016-11-20] MEDS ORDERED: ASPIRIN (CHILDR81 MG PO (10:17)
[2016-11-20] MEDS ORDERED: PEPCID20 MG PO (10:18)
[2016-11-20] MEDS ORDERED: NICODERM / HABIT7 MG TRANS (10:18)
[2016-11-20] MEDS ORDERED: TYLENOL325 MG PO (10:20)
[2016-11-20] MEDS ORDERED: NICODERM CQ1 EAC1 TRANS (10:20)
[2016-11-20] MEDS ORDERED: ADVIL200 MG PO (10:20)
== END 2016-11-20 13:45 | disposition disaster alternative care site (69) | DRG 91 ==
LOC: GIRP 11:36
PROVIDERS: ADMIT Physical Medicine & Rehabilitation
DX: R26.81 Unsteadiness on feet (principal); J96.90 Respiratory failure, unspecified, unspecified whether with hypoxia or hypercapnia; Z74.1 Need for assistance with personal care; S06.6X9D Traumatic subarachnoid hemorrhage with loss of consciousness of unspecified duration, subsequent encounter; S06.369D Traumatic hemorrhage of cerebrum, unspecified, with loss of consciousness of unspecified duration, subsequent encounter; V89.2XXD Person injured in unspecified motor-vehicle accident, traffic, subsequent encounter; S22.42XD Multiple fractures of ribs, left side, subsequent encounter for fracture with routine healing; S42.002D Fracture of unspecified part of left clavicle, subsequent encounter for fracture with routine healing; S32.049D Unspecified fracture of fourth lumbar vertebra, subsequent encounter for fracture with routine healing; S27.2XXD Traumatic hemopneumothorax, subsequent encounter; S37.032D Laceration of left kidney, unspecified degree, subsequent encounter
CPT/HCPCS: J1650; J2270